=== PATIENT | male | born 1985 | race Caucasian/White ===

== ENCOUNTER 2017-08-31 12:50 | Emergency (ER) | payer SELFPAY ==
[~2017-08-31] VITALS: Ht 170.2 cm; Wt 89.9 kg
[2017-08-31 13:34] LABS: HEMATOCRIT 46.4 % (38.0-50.0); HEMOGLOBIN 16.3 G/DL (12.5-16.6); MCH 31.1 PG (29.0-34.0); MCHC 35.1 G/DL (30.0-36.0); MCV 88.5 FL (86-99); PLATELET COUNT 344 K/uL (156-360); RBC DIS.WIDTH-CV 12.8 % (11.8-14.6); RBC DIS.WIDTH-SD 41.8 % (39-53); RED BLOOD COUNT 5.24 M/uL (4.00-5.50); WHITE BLOOD COUNT 16.5 K/uL (4.1-10.2)
[2017-08-31 13:36] LABS: BILIRUBIN NEGATIVE; BLOOD LARGE; COLOR YELLOW ((YELLOW)); GLUCOSE (STRIP) NEGATIVE; KETONES 20; LEUKOCYTES NEGATIVE; NITRITE NEGATIVE; PROTEIN (STRIP) 100; SPECIFIC GRAVITY 1.027 (1.000-1.030); UROBILINOGEN 0.2 MG/DL (0.2-1.0)
[2017-08-31 13:37] LABS: APPEARANCE SL.HAZY ((CLEAR))
[2017-08-31 13:40] LABS: BACTERIA NONE SEEN /HPF; EPITHELIAL CELLS NONE SEEN /HPF; MUCUS 1+ /LPF; RED BLOOD CELLS TNTC /HPF (0-5); UCUL ADDED? YES; WHITE BLOOD CELLS 0-5 /HPF (0-5)
[2017-08-31 13:43] LABS: CHLORIDE 107 mEq/L (99-109); POTASSIUM 4.2 mEq/L (3.7-5.4); SODIUM 141 mEq/L (136-147)
[2017-08-31 13:45] LABS: GLUCOSE 134 mg/dL (70-99)
[2017-08-31 13:46] LABS: TOTAL PROTEIN 8.9 g/dL (6.4-8.3)
[2017-08-31 13:47] LABS: TOTAL BILIRUBIN 0.6 mg/dL (0.0-1.0)
[2017-08-31 13:49] LABS: ALKALINE PHOSPHATASE 134 IU/L (3-129)
[2017-08-31 13:50] LABS: UREA NITROGEN (BUN) 15 mg/dL (9-23)
[2017-08-31 13:51] LABS: AST (GOT) 28 IU/L (2-34)
[2017-08-31 13:52] LABS: ALT (GPT) 45 IU/L (3-49); GFR ESTIMATE (CALCULATED) > 59 mL/min/ (58.99-99999)
[2017-08-31] MEDS ORDERED: ZOFRAN4 MG PO (15:44)
[2017-08-31] MEDS ORDERED: PERCOCET 5/31 TABLET PO (15:45)
[2017-08-31] MEDS ORDERED: FLOMAX0.4 MG PO (15:45)
[2017-08-31 16:17] VITALS: BP 117/79
== END 2017-08-31 16:19 | disposition home or self-care (01) ==
LOC: EME 12:50 → EXP 12:50
DX: N13.2 Hydronephrosis with renal and ureteral calculous obstruction (principal); N28.1 Cyst of kidney, acquired; F12.90 Cannabis use, unspecified, uncomplicated; F17.200 Nicotine dependence, unspecified, uncomplicated
CPT/HCPCS: 74177; 80053; 81003; 85027; 87086; 99281; 99285; J0696; J1885; J2405; J7030

== ENCOUNTER 2017-10-28 12:13 | Emergency (ER) | payer SELFPAY ==
[~2017-10-28] VITALS: Ht 170.2 cm; Wt 86.6 kg
[~2017-10-28 12:13] MED LIST: FLOMAX0.4 MG PO; PERCOCET 5/31 TABLET PO; ZOFRAN4 MG PO
[2017-10-28] MEDS ORDERED: PEN-VEE K,VEET250 MG PO (12:59)
[2017-10-28 13:02] VITALS: BP 144/92
== END 2017-10-28 13:17 | disposition home or self-care (01) ==
LOC: EME 12:13
DX: K04.7 Periapical abscess without sinus (principal); F17.200 Nicotine dependence, unspecified, uncomplicated
CPT/HCPCS: 99281; 99283